=== PATIENT | female | born 1965 | race Caucasian/White ===

== ENCOUNTER 2020-10-20 08:57 | Outpatient (REF) | payer BC, SELFPAY ==
--- NOTE | 2020-10-20 09:04 | MM_ITS ---
EXAMINATION: MM SCREENING DIGITAL BREAST TOMOSYNTHESIS, BILATERAL CLINICAL INFORMATION: Screening. Asymptomatic. The lifetime risk of breast cancer based on the Tyrer-Cuzick Model is 9.8%. COMPARISON: Mammography: 10/15/2019 and studies dating back to 11/29/2011 TECHNIQUE: Digital breast tomosynthesis is performed in both the craniocaudal and mediolateral oblique views along with computer-aided detection (CAD). Synthesized 2D images are generated from the tomosynthesis. FINDINGS: There are scattered areas of fibroglandular density (ACR BI-RADS breast composition Category b). There is stable appearance of the right breast without new abnormal dominant mass or suspicious grouping of microcalcifications. Within the inferior retroareolar region of the left breast, there is an ill-defined density measuring approximately 6 mm in diameter questionably containing some calcification. Recommend spot magnification film and 90 degree mediolateral view and craniocaudal view. MM/MM tomosynthesis screening BI IMPRESSION: Left breast retroareolar lesion for which spot magnification views are recommended. ASSESSMENT: BI-RADS 0: Incomplete - Need additional imaging evaluation. RECOMMENDATION: 1. Additional views of the left breast. 2. Targeted ultrasound if warranted after review of the additional views. 3. Radiology department staff will contact the patient for additional imaging.
== END 2020-10-20 08:58 | disposition home or self-care (01) ==
LOC: HO.MAMMO 08:57
PROVIDERS: PCP Family Medicine; Visit Provider Family Medicine
DX: Z12.31 Encounter for screening mammogram for malignant neoplasm of breast (principal)
CPT/HCPCS: 77063; 77067

== ENCOUNTER 2020-11-14 09:00 | Outpatient (REF) | payer BC, SELFPAY ==
--- NOTE | 2020-11-14 | MM_ITS ---
EXAMINATION: MM DIAGNOSTIC DIGITAL BREAST TOMOSYNTHESIS, LEFT US DIAGNOSTIC ULTRASOUND BREAST, LEFT CLINICAL INFORMATION: Recall from screening for nodule periareolar 4:00 left breast with possible calcifications. Prior history bilateral reduction mammoplasty and mastopexy 4-5 years ago. COMPARISON: Mammography: 10/20/2020, 10/15/2019, 07/02/2018; targeted left breast ultrasound 09/26/2019 TECHNIQUE: Digital breast tomosynthesis is performed. 2D images are generated from the tomosynthesis. The following views are obtained: Magnification CC, magnification ML. In addition, spot ML, spot CC, spot MLO views are provided. Ultrasound left breast is targeted to the lateral periareolar region using grayscale imaging and color Doppler without and with harmonics. FINDINGS: There are scattered areas of fibroglandular density (ACR BI-RADS breast composition Category b). The additional views show no grouped calcifications. There is no suspicious mass or architectural abnormality. The nodule noted on recent breast imaging corresponds to the area of previously documented periareolar cyst. Ultrasound left breast demonstrates small simple cyst 4:00 position 4 cm from nipple measuring 0.8 x 0.6 x 0.4 cm. Prior measurements are 1.0 x 0.7 x 0.5 cm. There is no new cystic or solid mass or architectural abnormality. No focal duct ectasia. Results are discussed with the patient at time of visit. MM/MM tomosynthesis added views L IMPRESSION: 1. Mammography additional views demonstrate no suspicious calcifications. 2. Nodule periareolar left breast corresponds to previously documented simple cyst, slightly decreased in size since 2019. ASSESSMENT: BI-RADS 2: Benign RECOMMENDATION: Routine annual mammography screening. This patient's information was entered into a reminder system with a target due date for their next mammogram.
== END 2020-11-14 09:01 | disposition home or self-care (01) ==
LOC: HO.MAMMO 09:00
PROVIDERS: Visit Provider Family Medicine
DX: R92.8 Other abnormal and inconclusive findings on diagnostic imaging of breast (principal); Z91.89 Other specified personal risk factors, not elsewhere classified; N60.02 Solitary cyst of left breast
CPT/HCPCS: 76642; 77061; 77065

== ENCOUNTER 2022-01-18 10:30 | Outpatient (REF) | payer BC, SELFPAY ==
--- NOTE | ~2022-01-18 | MM_ITS ---
EXAMINATION: MM SCREENING DIGITAL BREAST TOMOSYNTHESIS, BILATERAL CLINICAL INFORMATION: Screening. Asymptomatic. Prior history reduction mammoplasty and mastopexy over 5 years ago. The lifetime risk of breast cancer based on the Tyrer-Cuzick Model is 8%. COMPARISON: Mammography: 11/14/2020, 10/20/2020, 10/15/2019 targeted left breast ultrasound 11/14/2020. TECHNIQUE: Digital breast tomosynthesis is performed in both the craniocaudal and mediolateral oblique views along with computer-aided detection (CAD). Synthesized 2D images are generated from the tomosynthesis. FINDINGS: There are scattered areas of fibroglandular density (ACR BI-RADS breast composition Category b). There are no significant masses, abnormal calcifications, or other abnormalities. Small cyst anterior 4:00 left breast is decreased and no longer clearly seen. No developing density. No significant changes. The axilla and skin contours are unremarkable. MM/MM tomosynthesis screening BI IMPRESSION: No mammographic evidence of malignancy. ASSESSMENT: BI-RADS 1: Negative RECOMMENDATION: Routine annual mammography screening. This patient's information was entered into a reminder system with a target due date for their next mammogram.
== END 2022-01-18 10:31 | disposition home or self-care (01) ==
LOC: HO.MAMMO 10:30
PROVIDERS: PCP Family Medicine; Visit Provider Family Medicine
DX: Z12.31 Encounter for screening mammogram for malignant neoplasm of breast (principal)
CPT/HCPCS: 77063; 77067

== ENCOUNTER 2023-05-20 08:36 | Outpatient (REF) | payer BC, SELFPAY ==
--- NOTE | ~2023-05-20 | MM_ITS ---
EXAMINATION: MM SCREENING DIGITAL BREAST TOMOSYNTHESIS, BILATERAL CLINICAL INFORMATION: Screening. Asymptomatic. The patient has a prior history of bilateral breast reduction. The lifetime risk of breast cancer based on the Tyrer-Cuzick Model is 8.7%. COMPARISON: Mammography: This study is compared with prior exams dating back to TECHNIQUE: Digital breast tomosynthesis is performed in both the craniocaudal and mediolateral oblique views along with computer-aided detection (CAD). Synthesized 2D images are generated from the tomosynthesis. FINDINGS: There are scattered areas of fibroglandular density (ACR BI-RADS breast composition Category b). There are no significant masses, abnormal calcifications, or other abnormalities. MM/MM tomosynthesis screening BI IMPRESSION: No mammographic evidence of malignancy. ASSESSMENT: BI-RADS BI-RADS 1 - Negative RECOMMENDATION: Routine annual mammography screening. 1 year F/U This examination should not preclude the clinical evaluation of a suspicious palpable abnormality. This patient's information was entered into a reminder system with a target due date for their next mammogram.
== END 2023-05-20 08:37 | disposition home or self-care (01) ==
LOC: HO.MAMMO 08:36
PROVIDERS: PCP Family Medicine; Visit Provider Family Medicine
DX: Z12.31 Encounter for screening mammogram for malignant neoplasm of breast (principal)
CPT/HCPCS: 77063; 77067

== ENCOUNTER → 2023-05-20 08:45 | Outpatient (BNV) | payer BC, SELFPAY | PROVIDERS: PCP Family Medicine; Visit Provider Radiology Diagnostic Radiology | DX: Z12.31 Encounter for screening mammogram for malignant neoplasm of breast (principal) | CPT/HCPCS: 77063; 77067 ==

== ENCOUNTER 2024-08-06 10:25 | Outpatient (REF) | payer BC, SELFPAY ==
--- NOTE | ~2024-08-06 | MM_ITS ---
EXAMINATION: MM SCREENING DIGITAL BREAST TOMOSYNTHESIS, BILATERAL CLINICAL INFORMATION: Screening. Asymptomatic. COMPARISON: Mammography: Comparison is made with available priors TECHNIQUE: Digital breast mammography with tomosynthesis is performed in both the craniocaudal and mediolateral oblique views along with computer-aided detection (CAD). FINDINGS: There are scattered areas of fibroglandular density (ACR BI-RADS breast composition Category b). There are no significant masses, abnormal calcifications, or other abnormalities. MM/MM tomosynthesis screening BI IMPRESSION: No mammographic evidence of malignancy. ASSESSMENT: BI-RADS BI-RADS 1 - Negative RECOMMENDATION: Routine annual mammography screening. 1 year F/U This examination should not preclude the clinical evaluation of a suspicious palpable abnormality. This patient's information was entered into a reminder system with a target due date for their next mammogram. Electronically signed by: Rosalba Jamison DO 08/18/2024 11:09 AM EDT
== END 2024-08-06 10:26 | disposition home or self-care (01) ==
LOC: HO.MAMMO 10:25
PROVIDERS: PCP Family Medicine; Visit Provider Family Medicine
DX: Z12.31 Encounter for screening mammogram for malignant neoplasm of breast (principal)
CPT/HCPCS: 77063; 77067

== ENCOUNTER → 2024-08-06 10:30 | Outpatient (BNV) | payer BC, SELFPAY | PROVIDERS: PCP Family Medicine; Visit Provider Internal Medicine | DX: Z12.31 Encounter for screening mammogram for malignant neoplasm of breast (principal) | CPT/HCPCS: 77063; 77067 ==

== ENCOUNTER 2025-08-12 10:21 | Outpatient (REF) | payer BC, SELFPAY ==
--- OUTSIDE RECORDS SUMMARY | 2025-06-07 04:30 | XMS_ITS ---
Author Organization [facility] [address] Address [address] [place] [address] Care Team Providers Care Stripper Color Name Role Phone CRYSTAL BROWN Unavailable [phone] Encounters Encounter Location Date Provider Diagnosis [facility] [address] [place] [address] 06/07/2025 CRYSTAL BROWN Plan Of Treatment Next Appt Details Provider Name:CRYSTAL BROWN, 10:00:00 AM, [address] , [place], [address], Provider Name:CRYSTAL BROWN, 03:00:00 PM, [address] , [place], [address], Progress Notes * Janeth BEALOB: [birth year] (60 yo F)Acc No.[id number]:06/07/2025 Patient: Seth Dorina VASQUEZ Provider: Kenneth BROWN PA-C :1965 A ge:59 Y S ex:Female Date:06/07/2025 Address:[address] [place] [address] [address] [place] [id number] Subjective: * Chief Complaints: * * Medical History: Objective: * Vitals: Assessment: Plan: * Treatment: * Images: Billing Information: * Visit Code: * Procedure Codes: * Electronic signature of ROXIE BROWN PA-C on 08/12/2025 at 10:24 AM EDT Sign off status: Pending * Provider: Kenneth BROWN PA-C Date: 0 06/07/2025 Generated for Toni hernandez/Herbie/Farzanaitting on: 0 08/12/2025 10:24 AM EDT
--- OUTSIDE RECORDS SUMMARY | 2025-08-09 04:45 | XMS_ITS ---
[facility] Address [address] [place] [address] Care Team Providers Care Business Info Consultant Name Role Phone CRYSTAL BROWN Unavailable [phone] Allergies Allergen (clinical drug ingredient) Drug/Non Drug Allergy documented on EMR Reaction Allergy Type Onset Date Status acetaminophen / oxycodone Percocet rash Drug Allergy Active REASON FOR VISIT Patient is here for Weight Management follow up. Seca done for review. Todays weigh in is 125.2LBS,Previous weigh in was 124.3LBS Medications Medication SIG (Take, Route, Fr equency, Duration) Notes Start Date End Date Status Contrave 8-90 MG 1 tablet in the morn ing Orally Once a day; Duration: 30 days 08/09/2025 Active metFORMIN HCl 500 MG 1 tablet with a tania l Orally Once a day; Duration: 30 days 08/09/2025 Active Estradiol 0.025 MG/24HR Transdermal; Dur ation: 28 Days Active tiZANidine HCl 4 MG 1 tablet at bedtime as needed Orally Once a day; Duration: 7 days 07/06/2025 Active LORazepam 0.5 MG Oral; Duration: 5 Days Active Melatonin Active Nortriptyline HCl 25 MG Oral; Duration: 30 Days Active Multivitamin - 1 tablet Orally Once a day Active Progesterone 100 MG TAKE 1 CAPSULE BY [facility] EVERY DAY FOR 90 DAYS Oral; Duration: 30 Days Active Vital Signs Blood pressure systolic 112 mm Hg 08/09/20 25 Blood pressure diastolic 62 mm Hg 025 Heart Rate 75 /min 08/09/2025 Height 64 in 08/09/2025 Weight 125.2 lbs 08/09/2025 BMI 21.49 kg/m2 08/09/2025 Oximetry 97 % 08/09/2025 Encounters Encounter Location Date Provider Diagnosis [facility] [address] [place] [address] 08/09/2025 CRYSTAL BROWN BMI 21.0-21.9, adult Z68.21 ; Dietary counseling Z71.3 ; Tingling R20.2 ; Numbness R20.0 ; Lumbar back pain M54.50 and Encounter for examination of blood pressure without abnormal findings Z01.30 Assessments Encounter Date Diagnosis (ICD Code) Assessment Notes Treatment Notes Treatment Clinical Notes Section Notes 08/09/2025 BMI 21.0-21.9, adult (ICD-10 - Z68.21) Dorina is a 59-year-old female with a past medical history of C-spine pain, back pain, neuropathy who presents to the office today for a weight consult. 07/06/2025: BMI 21.3, weight 124.3 MICC injection given to patient in office today. Along with purchasing cortisol sound effects manager for stress lowering. Patient advised that we may talk about Contrave at next appointment if she does not find any relief from the injection today. #C-spine pain: Of note patient did have a spinal fusion in 2021, at new patient visit we did fax referral over to [facility] for further imaging and a second opinion. She is currently following with [facility] spine and sports, however feels as though she has been brushed off in regards to pain management and different options. Will be prescribing tizanidine 4 mg tablets to utilize as needed along with refaxing the referral. 08/09/2025: BMI 21.49, weight 125.2 at this time will be starting Contrave 1 pill daily until patient is seen back in 4 weeks. Additionally patient may begin metformin 1 pill daily for overall insulin resistance and blood sugar control. Will not be having patient take more than 1 pill daily as her goal is maintenance not weight loss. #Muscle spasms: Continue utilizing tizanidine 4 mg tablets as needed. #MICC injection given today Patient is here for weight management followup. We focused on significance of healthy lifestyle changes. We talked about need to track steps, work on portion control, read food labels, get adequate sleep, give adequate rest of the body, meditate, frequent nutritious meals including vegetables and healthy choices of meat and elimination of refined carbohydrates. We also talked about mindfulness and mindful eating. Particular focus was on lifestyle changes and protein intake Total time spent was 30 minutes with greater than 50% spent on counseling and coordinating care All questions have been answered to patient's satisfaction. Patient verbalized understanding of diagnosis and treatments explained. Advised to call sooner prior to next visit it any questions/concerns arise. Case discussed with Suman CORDOVA who reviewed the assessment and plan. Chart, medications, labs, vital signs reviewed. Dictation was accomplished with the use of [employer] voice recognition software, which is prone to medical misidentifications and grammatical errors. This are unintentional and the practitioner does try to identify and correct these, but some could still be present. Please do not hesitate to contact practitioner for clarification. 08/09/2025 Dietary counseling (ICD-10 - Z71.3) Dorina is a 59-year-old female with a past medical history of C-spine pain, back pain, neuropathy who presents to the office today for a weight consult. 07/06/2025: BMI 21.3, weight 124.3 MICC injection given to patient in office today. Along with purchasing cortisol sound effects manager for stress lowering. Patient advised that we may talk about Contrave at next appointment if she does not find any relief from the injection today. #C-spine pain: Of note patient did have a spinal fusion in 2021, at new patient visit we did fax referral over to [facility] for further imaging and a second opinion. She is currently following with [facility] spine and sports, however feels as though she has been brushed off in regards to pain management and different options. Will be prescribing tizanidine 4 mg tablets to utilize as needed along with refaxing the referral. 08/09/2025: BMI 21.49, weight 125.2 at this time will be starting Contrave 1 pill daily until patient is seen back in 4 weeks. Additionally patient may begin metformin 1 pill daily for overall insulin resistance and blood sugar control. Will not be having patient take more than 1 pill daily as her goal is maintenance not weight loss. #Muscle spasms: Continue utilizing tizanidine 4 mg tablets as needed. #MICC injection given today Patient is here for weight management followup. We focused on significance of healthy lifestyle changes. We talked about need to track steps, work on portion control, read food labels, get adequate sleep, give adequate rest of the body, meditate, frequent nutritious meals including vegetables and healthy choices of meat and elimination of refined carbohydrates. We also talked about mindfulness and mindful eating. Particular focus was on lifestyle changes and protein intake Total time spent was 30 minutes with greater than 50% spent on counseling and coordinating care All questions have been answered to patient's satisfaction. Patient verbalized understanding of diagnosis and treatments explained. Advised to call sooner prior to next visit it any questions/concerns arise. Case discussed with Suman CORDOVA who reviewed the assessment and plan. Chart, medications, labs, vital signs reviewed. Dictation was accomplished with the use of [employer] voice recognition software, which is prone to medical misidentifications and grammatical errors. This are unintentional and the practitioner does try to identify and correct these, but some could still be present. Please do not hesitate to contact practitioner for clarification. 08/09/2025 Tingling (ICD-10 - R20.2) Dorina is a 59-year-old female with a past medical history of C-spine pain, back pain, neuropathy who presents to the office today for a weight consult. 07/06/2025: BMI 21.3, weight 124.3 MICC injection given to patient in office today. Along with purchasing cortisol sound effects manager for stress lowering. Patient advised that we may talk about Contrave at next appointment if she does not find any relief from the injection today. #C-spine pain: Of note patient did have a spinal fusion in 2021, at new patient visit we did fax referral over to [facility] for further imaging and a second opinion. She is currently following with [facility] spine and sports, however feels as though she has been brushed off in regards to pain management and different options. Will be prescribing tizanidine 4 mg tablets to utilize as needed along with refaxing the referral. 08/09/2025: BMI 21.49, weight 125.2 at this time will be starting Contrave 1 pill daily until patient is seen back in 4 weeks. Additionally patient may begin metformin 1 pill daily for overall insulin resistance and blood sugar control. Will not be having patient take more than 1 pill daily as her goal is maintenance not weight loss. #Muscle spasms: Continue utilizing tizanidine 4 mg tablets as needed. #MICC injection given today Patient is here for weight management followup. We focused on significance of healthy lifestyle changes. We talked about need to track steps, work on portion control, read food labels, get adequate sleep, give adequate rest of the body, meditate, frequent nutritious meals including vegetables and healthy choices of meat and elimination of refined carbohydrates. We also talked about mindfulness and mindful eating. Particular focus was on lifestyle changes and protein intake Total time spent was 30 minutes with greater than 50% spent on counseling and coordinating care All questions have been answered to patient's satisfaction. Patient verbalized understanding of diagnosis and treatments explained. Advised to call sooner prior to next visit it any questions/concerns arise. Case discussed with Suman CORDOVA who reviewed the assessment and plan. Chart, medications, labs, vital signs reviewed. Dictation was accomplished with the use of [employer] voice recognition software, which is prone to medical misidentifications and grammatical errors. This are unintentional and the practitioner does try to identify and correct these, but some could still be present. Please do not hesitate to contact practitioner for clarification. 08/09/2025 Numbness (ICD-10 - R20.0) Dorina is a 59-year-old female with a past medical history of C-spine pain, back pain, neuropathy who presents to the office today for a weight consult. 07/06/2025: BMI 21.3, weight 124.3 MICC injection given to patient in office today. Along with purchasing cortisol sound effects manager for stress lowering. Patient advised that we may talk about Contrave at next appointment if she does not find any relief from the injection today. #C-spine pain: Of note patient did have a spinal fusion in 2021, at new patient visit we did fax referral over to [facility] for further imaging and a second opinion. She is currently following with [facility] spine and sports, however feels as though she has been brushed off in regards to pain management and different options. Will be prescribing tizanidine 4 mg tablets to utilize as needed along with refaxing the referral. 08/09/2025: BMI 21.49, weight 125.2 at this time will be starting Contrave 1 pill daily until patient is seen back in 4 weeks. Additionally patient may begin metformin 1 pill daily for overall insulin resistance and blood sugar control. Will not be having patient take more than 1 pill daily as her goal is maintenance not weight loss. #Muscle spasms: Continue utilizing tizanidine 4 mg tablets as needed. #MICC injection given today Patient is here for weight management followup. We focused on significance of healthy lifestyle changes. We talked about need to track steps, work on portion control, read food labels, get adequate sleep, give adequate rest of the body, meditate, frequent nutritious meals including vegetables and healthy choices of meat and elimination of refined carbohydrates. We also talked about mindfulness and mindful eating. Particular focus was on lifestyle changes and protein intake Total time spent was 30 minutes with greater than 50% spent on counseling and coordinating care All questions have been answered to patient's satisfaction. Patient verbalized understanding of diagnosis and treatments explained. Advised to call sooner prior to next visit it any questions/concerns arise. Case discussed with Suman CORDOVA who reviewed the assessment and plan. Chart, medications, labs, vital signs reviewed. Dictation was accomplished with the use of [employer] voice recognition software, which is prone to medical misidentifications and grammatical errors. This are unintentional and the practitioner does try to identify and correct these, but some could still be present. Please do not hesitate to contact practitioner for clarification. 08/09/2025 Lumbar back pain (ICD-10 - M54.50) Dorina is a 59-year-old female with a past medical history of C-spine pain, back pain, neuropathy who presents to the office today for a weight consult. 07/06/2025: BMI 21.3, weight 124.3 MICC injection given to patient in office today. Along with purchasing cortisol sound effects manager for stress lowering. Patient advised that we may talk about Contrave at next appointment if she does not find any relief from the injection today. #C-spine pain: Of note patient did have a spinal fusion in 2021, at new patient visit we did fax referral over to [facility] for further imaging and a second opinion. She is currently following with [facility] spine and sports, however feels as though she has been brushed off in regards to pain management and different options. Will be prescribing tizanidine 4 mg tablets to utilize as needed along with refaxing the referral. 08/09/2025: BMI 21.49, weight 125.2 at this time will be starting Contrave 1 pill daily until patient is seen back in 4 weeks. Additionally patient may begin metformin 1 pill daily for overall insulin resistance and blood sugar control. Will not be having patient take more than 1 pill daily as her goal is maintenance not weight loss. #Muscle spasms: Continue utilizing tizanidine 4 mg tablets as needed. #MICC injection given today Patient is here for weight management followup. We focused on significance of healthy lifestyle changes. We talked about need to track steps, work on portion control, read food labels, get adequate sleep, give adequate rest of the body, meditate, frequent nutritious meals including vegetables and healthy choices of meat and elimination of refined carbohydrates. We also talked about mindfulness and mindful eating. Particular focus was on lifestyle changes and protein intake Total time spent was 30 minutes with greater than 50% spent on counseling and coordinating care All questions have been answered to patient's satisfaction. Patient verbalized understanding of diagnosis and treatments explained. Advised to call sooner prior to next visit it any questions/concerns arise. Case discussed with Suman CORDOVA who reviewed the assessment and plan. Chart, medications, labs, vital signs reviewed. Dictation was accomplished with the use of [employer] voice recognition software, which is prone to medical misidentifications and grammatical errors. This are unintentional and the practitioner does try to identify and correct these, but some could still be present. Please do not hesitate to contact practitioner for clarification. 08/09/2025 Encounter for examination of blood pressure without abnormal findings (ICD-10 - Z01.30) Dorina is a 59-year-old female with a past medical history of C-spine pain, back pain, neuropathy who presents to the office today for a weight consult. 07/06/2025: BMI 21.3, weight 124.3 MICC injection given to patient in office today. Along with purchasing cortisol sound effects manager for stress lowering. Patient advised that we may talk about Contrave at next appointment if she does not find any relief from the injection today. #C-spine pain: Of note patient did have a spinal fusion in 2021, at new patient visit we did fax referral over to [facility] for further imaging and a second opinion. She is currently following with [facility] spine and sports, however feels as though she has been brushed off in regards to pain management and different options. Will be prescribing tizanidine 4 mg tablets to utilize as needed along with refaxing the referral. 08/09/2025: BMI 21.49, weight 125.2 at this time will be starting Contrave 1 pill daily until patient is seen back in 4 weeks. Additionally patient may begin metformin 1 pill daily for overall insulin resistance and blood sugar control. Will not be having patient take more than 1 pill daily as her goal is maintenance not weight loss. #Muscle spasms: Continue utilizing tizanidine 4 mg tablets as needed. #MICC injection given today Patient is here for weight management followup. We focused on significance of healthy lifestyle changes. We talked about need to track steps, work on portion control, read food labels, get adequate sleep, give adequate rest of the body, meditate, frequent nutritious meals including vegetables and healthy choices of meat and elimination of refined carbohydrates. We also talked about mindfulness and mindful eating. Particular focus was on lifestyle changes and protein intake Total time spent was 30 minutes with greater than 50% spent on counseling and coordinating care All questions have been answered to patient's satisfaction. Patient verbalized understanding of diagnosis and treatments explained. Advised to call sooner prior to next visit it any questions/concerns arise. Case discussed with Suman CORDOVA who reviewed the assessment and plan. Chart, medications, labs, vital signs reviewed. Dictation was accomplished with the use of [employer] voice recognition software, which is prone to medical misidentifications and grammatical errors. This are unintentional and the practitioner does try to identify and correct these, but some could still be present. Please do not hesitate to contact practitioner for clarification. Plan Of Treatment Medication Medication Name Sig Start Date Stop Date Notes Contrave 8-90 MG 1 tablet in the morn ing Orally Once a day; Duration: 30 days 08/09/2025 metFORMIN HCl 500 MG 1 tablet with a tania l Orally Once a day; Duration: 30 days 08/09/2025 tiZANidine HCl 4 MG 1 tablet at bedtime as needed Orally Once a day; Duration: 7 days 07/06/2025 Pending Test Test Name Order Date [facility] Hemoglobin A1C 08/09/2025 Next Appt Details Provider Name:CRYSTAL BROWN, 10:00:00 AM, [address], [place], [address], Provider Name:CRYSTAL BROWN, 03:00:00 PM, [address] , [place], [address], Medications Administered Medication Instructions Date of Administration Dosage Notes [facility] B12 INJECTION 08/09/2025 1 mL Progress Notes * Janeth BEALOB: [birth year] (60 yo F)Acc No.[id number]:08/09/2025 Patient: Dorina STANTON Provider: Kenneth BROWN PA-C :1965 A ge:60 Y S ex:Female Date:08/09/2025 Address:[address] [place] [address] [address], [place] [id number] Subjective: * Chief Complaints: * 1 . Patient is here for Weight Management follow up. Seca done for review. Todays weigh in is 125.2LBS, Previous weigh in was 124.3LBS. * HPI: C onstitutional: Dorina is a 60-year-old female with a past medical history of C-spine discomfort, back pain who presents to the office today for a weight management follow-up. Patient's current weight today is 125.2, last weight was 124.3. Patient states that she was previously being prescribed metformin, bupropion and naltrexone through [facility] and is interested in restarting these medications. I feel as though would be appropriate to dose Contrave once daily for 1 month until I see patient back for maintenance dosing. Additionally metformin 500 mg once daily would be appropriate for maintenance as well. Patient admits that she is still following with her massage therapist, chiropractor and switchboard mechanic for her back pain, hip pain and leg pain.. States that tizanidine was helpful with her muscle spasms and cortisol sound effects manager helped her with her sleep. * ROS: C onstitutional: Patient denies any excessive fatigue with exercise, no weight loss, no fever and no night sweats Eyes: No eye discharge, no itching, no redness. Advised the significance of regular eye exams to screen for glaucoma and other eye problems Ear nose throat: No sore throat, postnasal drip, runny nose, Sneezing Cardiovascular: No chest pain, no shortness of breath, no dyspnea on exertion, no PND, no orthopnea, no irregular pulse Respiratory: No chronic cough, no hemoptysis, no sputum, no wheezing GI, no diarrhea, no constipation no blood in the stools, no pain associated with eating, no indigestion Genitourinary: No painful urination no hesitancy no blood in the urine Musculoskeletal, no limitations to walking and running, no joint deformity, no joint stiffness, +chronic back pain/neck pain, no noise with joint movement Integumentary, no new skin rash. No new changes in skin moles Neurological: No history of seizures, memory loss, No language dysfunction, No inability to concentrate, no localized weakness, no sensation loss, no confusion Psychiatric: No depression, no suicidal thoughts, no anxiety Endocrine: No polyuria no polyphagia or polydipsia, no heat intolerance no cold intolerance Hematological: No easy bruising or Lymph node swelling. * Medical History: M edical History Verified. * Surgical History: b reast reduction , section , Ulnar shortening , Spinal Fusion 2021. * Hospitalization/Major Diagno stic Procedure: D enies Past Hospitalization. * Family History: F ather: alive 81 yrs. M other: alive 78 yrs. S iblings: alive. C hildren: alive.? FHX of cancer, Diabetes adn HTN Father- Prostate cancer, HTN, and HLD Mother- NONE Three siblings- two brothers(one with diabetes), one sister Two children 26 and 29. 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 * Medications: T aking Melatonin , Taking Multivitamin - Tablet 1 tablet Orally Once a day , Taking Progesterone 100 MG Capsule TAKE 1 CAPSULE BY MOUTH EVERY DAY FOR 90 DAYS Oral , Taking Nortriptyline HCl 25 MG Capsule Oral , Taking Estradiol 0.025 MG/24HR Patch Twice Weekly Transdermal , Taking LORazepam 0.5 MG Tablet Oral , Taking tiZANidine HCl 4 MG Tablet 1 tablet at bedtime as needed Orally Once a day , Medication List reviewed and reconciled with the patient * Allergies: P ercocet: rash - Allergy. Objective: * Vitals: H R:75/min, BP:112/62mm Hg, Wt:125.2lbs, BMI:21.49Index, Ht: 64 in, Oxygen sat %:97%. * Physical Examination: G eneral: Patient is well appearing, in no acute distress, speaking in full sentences without visible respiratory distress. Well groomed, well developed. Alert, interactive. Skin: Warm, dry without new lesions HEENT: Normocephalic/atraumatic. Cardiac: Regular rate and rhythm without murmurs, rubs, or gallops. 2+ radial pulses bilaterally.? Lungs: Equal chest rise and fall bilaterally. Neuro: Steady gait with non-assisted ambulation observed. Psych: Stable mood and affect. Assessment: * Assessment: 1. D ietary counseling - Z71.3 (Primary) [address] 21.0-21.9, adult - Z68.21? 3. T ingling - R20.2 4 . N umbness - R20.0 ?5. L umbar back pain - M54.50 6 . E ncounter for examination of blood pressure without abnormal findings - Z01.30 Dorina is a 59-year-old fema le with a past medical history of C-spine pain, back pain, neuropathy who presents to the office today for a weight consult. 07/06/2025: BMI 21.3, weight 124.3 MICC injection given to patient in office today. Along with purchasing cortisol sound effects manager for stress lowering. Patient advised that we may talk about Contrave at next appointment if she does not find any relief from the injection today. #C-spine pain: Of note patient did have a spinal fusion in 2021, at new patient visit we did fax referral over to [facility] for further imaging and a second opinion. She is currently following with [facility] spine and sports, however feels as though she has been brushed off in regards to pain management and different options. Will be prescribing tizanidine 4 mg tablets to utilize as needed along with refaxing the referral. 08/09/2025: BMI 21.49, weight 125.2 at this time will be starting Contrave 1 pill daily until patient is seen back in 4 weeks. Additionally patient may begin metformin 1 pill daily for overall insulin resistance and blood sugar control. Will not be having patient take more than 1 pill daily as her goal is maintenance not weight loss. #Muscle spasms: Continue utilizing tizanidine 4 mg tablets as needed. #MICC injection given today Patient is here for weight management followup. We focused on significance of healthy lifestyle changes. We talked about need to track steps, work on portion control, read food labels, get adequate sleep, give adequate rest of the body, meditate, frequent nutritious meals including vegetables and healthy choices of meat and elimination of refined carbohydrates. We also talked about mindfulness and mindful eating. Particular focus was on lifestyle changes and protein intake Total time spent was 30 minutes with greater than 50% spent on counseling and coordinating care All questions have been answered to patient's satisfaction. Patient verbalized understanding of diagnosis and treatments explained. Advised to call sooner prior to next visit it any questions/concerns arise. Case discussed with Suman CORDOVA who reviewed the assessment and plan. Chart, medications, labs, vital signs reviewed. Dictation was accomplished with the use of [employer] voice recognition software, which is prone to medical misidentifications and grammatical errors. This are unintentional and the practitioner does try to identify and correct these, but some could still be present. Please do not hesitate to contact practitioner for clarification. Plan: * Treatment: * Therapeutic Injections: MICC B12 INJECTION : 1 mL (Route: Intramuscular) given by VALERIE VISANETTE on left arm intramuscular * Labs: * L ab: PPC Hemoglobin A1C 5 .1% * Procedure Codes: 3 074F SYST BP LT 130 MM HG, 3078F DIAST BP < 80 MM HG, 99460 GLYCATED HEMOGLOBIN TEST, Modifiers: QW * Images: Billing Information: * Visit Code: 19465 Office Visit, Est Pt., Level 4. Modifiers: SA * Procedure Codes: 3074F SYST BP LT 130 MM HG. 3078F DIAST BP < 80 MM HG. 85870 GLYCATED HEMOGLOBIN TEST. Modifiers: QW * Sign off status: Completed true * Provider: Kenneth BROWN PA-C Date: 08/09/2025 Generated for Toni hernandez/Herbie/Farzanaitting on: 08/12/2025 10:24 AM EDT History and Physical Notes * Physical Examination Category Sub-Category Detail Notes Section Note s General: Patient is well appearing, in no acute distress, speaking in full sentences without visible respiratory distress. Well groomed, well developed. Alert, interactive. Skin: Warm, dry without new lesions HEENT: Normocephalic/atraumatic. Cardiac: Regular rate and rhythm without murmurs, rubs, or gallops. 2+ radial pulses bilaterally. Lungs: Equal chest rise and fall bilaterally. Neuro: Steady gait with non-assisted ambulation observed. Psych: Stable mood and affect.
--- NOTE | ~2025-08-12 | MM_ITS ---
EXAMINATION: MM SCREENING DIGITAL BREAST TOMOSYNTHESIS, BILATERAL CLINICAL INFORMATION: Screening. Asymptomatic. COMPARISON: Mammography: Comparison is made with available priors TECHNIQUE: Digital breast mammography with tomosynthesis is performed in both the craniocaudal and mediolateral oblique views along with computer-aided detection (CAD). FINDINGS: There are scattered areas of fibroglandular density. There are no significant masses, abnormal calcifications, or other abnormalities. MM/MM tomosynthesis screening BI IMPRESSION: No mammographic evidence of malignancy. ASSESSMENT: BI-RADS Category 1: Negative RECOMMENDATION: Routine annual mammography screening. 1 year F/U This examination should not preclude the clinical evaluation of a suspicious palpable abnormality. This patient's information was entered into a reminder system with a target due date for their next mammogram. Electronically signed by: Rosalba Jamison DO 08/15/2025 09:40 AM EDMina
--- OUTSIDE RECORDS SUMMARY | 2025-08-12 10:24 | XMS_ITS | Clinical Summary ---
Author Organization [facility] Address [address] [place] [address] Care Team Providers Care Social Sciences Research Scientist Name Role Phone Unknown, Primary Care Provider Unavailabl e Social History Tobacco Use Types Packs/Day Years Used Date Smoking Tobacco: Never Assessed Sex and Gender Information Value Date Recorded Sex Assigned at Not on file Gender Identity Not on file Sexual Orientation Not on file Job Start Date Occupation Industry Not on file Not on file Not on file Plan of Treatment Health Maintenance Due Date Last Done Comments Hepatitis B Vaccines (1 of 3 - 3-dose series) 1967 Hepatitis C Screening 1967 COVID-19 Vaccine (#1) 01/29/1968 Depression Screening 1979 Preventative Health Evaluation 1985 DTap / Tdap / Td (1 - Tdap) 1986 Cervical Cancer Screening (P ap Smear) 1988 Colon Cancer Screening (Colonoscopy) 2012 Breast Cancer Screening (Mammogram) 2017 Shingrix-Zoster Vaccine (1 of 2) 2017 Influenza Vaccine (#1) 2025 Pneumococcal Vaccine Aged Out No long er eligible based on patient's age to complete this topic RSV Ped < 20 months Aged Out No longe r eligible based on patient's age to complete this topic Care Teams Social Sciences Research Scientist Relationship Specialty Start Date End Date Unknown, PCP - General 01/30/23
--- OUTSIDE RECORDS SUMMARY | 2025-08-12 10:24 | XMS_ITS | Clinical Summary ---
Author Organization [facility] Address [address] [place] [address] Care Team Providers Care Recording Studio Intern Name Role Phone Rafiq Aguila MD Primary Care Provider [phone] Allergies No known active allergies Social History Tobacco Use Types Packs/Day Years Used Date Smoking Tobacco: Never Assessed Comments Unknown Sex and Gender Information Value Date Recorded Sex Assigned at Not on file Legal Sex Female 3:27 PM EDT Gender Identity Not on file Sexual Orientation Not on file Last Filed Vital Signs Vital Sign Reading Time Taken Comments Blood Pressure 109/76 09/07/2020 4:37 PM EDT Pulse 75 09/07/2020 4:37 PM EDT Temperature 36.1 C (96.9 F) 09/07/2020 4:37 PM EDT Respiratory Rate - - Oxygen Saturation 98% 09/07/2020 4:37 PM EDT Inhaled Oxygen Concentration - - Weight - - Height - - Body Mass Index - - Plan of Treatment Health Maintenance Due Date Last Done Comments Hepatitis C Virus Screening 1967 HIV Screening 1980 DTaP/Tdap/Td Vaccines (1 - Tdap) 1986 Hepatitis B Vaccines (1 of 3 - 19+ 3-dose series) 07/17 Pap Smear (Ages 21-65) 1988 Mammogram 2007 Colonoscopy 2012 Pneumococcal Vaccines 50+ (1 of 1 - PCV) 2017 Zoster (Shingles) Vaccine (1 of 2) 2017 Influenza Vaccine 06/16/2025 COVID-19 Vaccine (1 - 2023- season) 2025 Insurance [facility] PPO Care Teams Recording Studio Intern Relationship Specialty Start Date End Date Rafiq Aguila MD [address] [place] [address] PCP - General Psychiatry, General 09/07/20
--- OUTSIDE RECORDS SUMMARY | 2025-08-12 10:24 | XMS_ITS | Clinical Summary ---
Author Organization [facility] Address [address] [place] [id number] Care Team Providers Care General Practice Name Role Phone Rafiq Aguila MD Primary Care Provider [phone] Allergies Active Allergy Reactions Criticality Noted Date Comments Oxycodone-Acetaminophen 11/19/2021 Other reaction(s): itchy Medications LORazepam (ATIVAN) 0.5 mg tablet lorazepam 0.5 mg tablet Active Family History Medical History Relation Comments Basal cell carcinoma Father Relation Status Comments Father Social History Tobacco Use Types Packs/Day Years Used Date Smoking Tobacco: Never Smokeless Tobacco: Never Comments Unknown Sex and Gender Information Value Date Recorded Sex Assigned at Female 11/19/2021 2:20 PM EST Legal Sex Female 9:52 AM EDT Gender Identity Female 11/19/2021 2:20 PM EST Sexual Orientation Not on file Last Filed Vital Signs Vital Sign Reading Time Taken Comments Blood Pressure 144/95 11/19/2021 3:58 PM EST Pulse 69 11/19/2021 3:58 PM EST Temperature 36.6 C (97.9 F) 11/19/2021 3:58 PM EST Respiratory Rate 18 11/19/2021 3:58 PM EST Oxygen Saturation 97% 11/19/2021 3:58 PM EST Inhaled Oxygen Concentration - - Weight 61.2 kg (135 lb) 11/19/2021 3:58 PM EST Height 167.6 cm (5' 6 ) 11/19/2021 3:58 PM EST Body Mass Index 21.79 11/19/2021 3:58 PM EST Plan of Treatment Health Maintenance Due Date Last Done Comments Breast Cancer Screening 1967 CT Colonography 1967 Colonoscopy 1967 Colorectal Cancer Screening 1967 FIT-DNA (Cologuard) 1967 FIT 1967 FOBT 1967 Flex Sigmoidoscopy - 5y 1967 HIV Screening 1967 DTaP,Tdap,and Td Vaccines (1 - Tdap) 1985 Hepatitis B Vaccines (1 of 3 - 19+ 3-dose series) 1986 Pap Smear 1988 Cervical Cancer Screening 1997 HPV/Cotest 1997 Pneumococcal Vaccine, 50+ Years (1 of 1 - PCV) 2017 Zoster Vaccines (1 of 2) 2017 COVID-19 Vaccine (1 - 2023-2 5 season) 2025 Influenza Vaccine (#1) 2025 1, 10/10/2019 HPV Vaccines Aged Out No longer eligi ble based on patient's age to complete this topic Hepatitis A Vaccines Aged Out No long er eligible based on patient's age to complete this topic MMR Vaccines Aged Out No longer eligi ble based on patient's age to complete this topic Meningococcal Vaccine Aged Out No prashant caned eligible based on patient's age to complete this topic Insurance Care Teams General Practice Relationship Specialty Start Date End Date Rafiq Aguila MD [facility] [address] [place] [id number] PCP - General Family Medicine 06/19/21
--- OUTSIDE RECORDS SUMMARY | 2025-08-12 10:24 | XMS_ITS ---
Author Name [facility] Organization Unknown Results Test Name/Text Value Interpretation Date Range Source TROPONIN 0.0 mg/dL Normal 09/18/2024 0 - 0.49 [facility] GFRE 60.0 Normal 09/18/2024 60 - [facility] CO2 26.0 mmol/L Normal 09/18/2024 20 - 31 [facility] GLUCOSE 87.0 mg/dL Normal 09/18/2024 74 - 100 [facility] SODIUM 135.0 mmol/L Below low normal 09/18/2024 136 - 145 [facility] GLOBULIN 2.7 g/dL Normal 09/18/2024 2.4 - 4.2 [facility] CREATININE 1.01 mg/dL Normal 09/18/2024 0.55 - 1.02 [facility] POTASSIUM SERUM 3.7 mmol/l Normal 09/18/2024 3.5 - 5.1 [facility] ALKALINE PHOSPHATASE 61.0 U/L Normal 09/18/2024 50 - 136 [facility] BUN 11.0 mg/dL Normal 09/18/2024 7 - 18 [facility] BILIRUBIN,TOTAL 1.3 mg/dL Above high normal 09/18/2024 0.2 - 1 [facility] A/G RATIO 1.7 g/dL Normal 09/18/2024 [facility] AST (SGOT) 17.0 U/L Normal 09/18/2024 15 - 37 [facility] BUN/CREAT.RATIO 10.9 Normal 09/18/2024 [facility] PROTEIN, TOTAL 7.4 g/dL Normal 09/18/2024 5.7 - 8.2 [facility] ALBUMIN 4.7 g/dL Normal 09/18/2024 3.4 - 5 [facility] CHLORIDE 100.0 mmol/L Normal 09/18/2024 98 - 107 [facility] ALT (SGPT) 14.0 U/L Normal 09/18/2024 12 - 78 [facility] PATIENT FASTING? UNKNOWN Normal 09/18/2024 [facility] RBC 0.0 /HPF Normal 09/18/2024 0 - 0 [facility] WBC 0.0 /HPF Normal 09/18/2024 0 - 0 [facility] GLUCOSE NEG Normal 09/18/2024 - [facility] NITRITE NEG Normal 09/18/2024 - [facility] LEUK. ESTERASE NEG Normal 09/18/2024 - [facility] KETONES NEGATIVE Normal 09/18/2024 - [facility] UROBILINOGEN 0.2 MG/DL Normal 09/18/2024 - [facility] COLOR YELLOW Normal 09/18/2024 - [facility] BILIRUBIN NEGATIVE Normal 09/18/2024 - [facility] SPECIFIC GRAVITY <=1.005 Critically abnormal 09/18/2024 1. 005 - 1.03 [facility] PH 6.0 Normal 09/18/2024 5 - 8 [facility] APPEARANCE CLEAR Normal 09/18/2024 - [facility] BLOOD NEG Normal 09/18/2024 - [facility] PROTEIN NEG Normal 09/18/2024 - [facility] PLATELET COUNT 427.0 K/uL Normal 09/18/2024 150 - 480 [facility] ABSOLUTE MONOS 0.8 K/uL Normal 09/18/2024 0.2 - 1.5 [facility] LYMPHS 38.0 % Normal 09/18/2024 16 - 50 [facility] ABSOLUTE BASO 0.1 K/uL Normal 09/18/2024 0 - 0.2 [facility] IMMATURE GRANULOCYTES 0.0 % Normal 09/18/2024 0 - 0.45 [facility] MONOCYTES 11.0 % Normal 09/18/2024 0 - 12 [facility] MCH 32.0 PG Normal 09/18/2024 27 - 34 [facility] ABSOLUTE EOS 0.3 K/uL Normal 09/18/2024 0 - 0.7 [facility] HCT 35.2 % Below low normal 09/18/2024 36 - 46 [facility] ABSOLUTE LYMPHS 2.6 K/uL Normal 09/18/2024 1.5 - 4.9 [facility] ABSOLUTE IMMATURE GRANULOCYTES 0.0 K/uL Normal 09/18/2024 0 - 0.3 [facility] WBC 6.8 K/uL Normal 09/18/2024 3.7 - 10.3 [facility] ABSOLUTE NUCLEATED RBC 0.0 K/uL Normal 09/18/2024 0 - 0.012 [facility] MPV 9.0 fL Normal 09/18/2024 8 - 12 [facility] ABSOLUTE GRANULOCYTES 3.1 K/uL Normal 09/18/2024 2.2 - 7.3 [facility] RDW 12.5 % Normal 09/18/2024 11.1 - 13.3 [facility] RBC 3.94 M/uL Below low normal 09/18/2024 4 - 5.4 [facility] EOSINOPHILS 4.0 % Normal 09/18/2024 0 - 6 [facility] HGB 12.7 g/dL Normal 09/18/2024 12.1 - 15.7 [facility] GRANULOCYTES 46.0 % Normal 09/18/2024 23 - 78 [facility] MCHC 36.1 g/dL Above high normal 09/18/2024 31 - 36 [facility] MCV 89.0 fL Normal 09/18/2024 83 - 102 [facility] NUCLEATED RBC 0.0 % Normal 09/18/2024 0 - 0.2 [facility] BASOPHILS 1.0 % Normal 09/18/2024 0 - 2 [facility] History of Medication Use Medication Directions Dispensed Refills Start Date End Date Stat Tylenol Extra Strength 500 mg tablet Take 2 tablets 3 times a day by oral route. 02/05/2023 active chlorhexidine gluconate 0.12 % mouthwash RINSE MOUTH WITH 15ML (1 CAPFUL) FOR 30 SECONDS IN MORNING AND EVENING AFTER BRUSHING, THEN SPIT 3 completed cyclobenzaprine 5 mg tablet TAKE ONE TABLET BY MOUTH THREE TIMES A DAY FOR 14 DAYS 3 completed oxycodone 5 mg tablet TAKE 1 TABLET BY MOUTH EVERY 6 HOURS NEEDED FOR PAIN 2 completed ibuprofen 600 mg tablet TAKE 1 TABLET BY MOUTH EVERY 6 HOURS active Lexapro active Problems Problem Status Onset Date Problem Type Date of Resoluti on Source Closed fracture dislocation of tarsometatarsal joint active 2023-02-04 ProblemAct ENS_AO NECT Encounters Encounter Type Encounter Reason Primary Diagnosis Location Date Emergency FALL YESTERDAY HEADACHE F[facility] YESTER[facility] 09/18/2024 Ambulatory LUMBAR/BP LUMBAR/BP [facility] 08/02/2024 Ambulatory [facility] 06/29/2023 Ambulatory [facility] 06/29/2023 Ambulatory [facility] 03/07/2023 Ambulatory ED REF L FOOT PAIN 02/02/23 ED REF L FOOT PAIN 02/02/23 [facility] 02/02/2023 Emergency LEFT FOOT INJURY LEFT FOOT INJURY [facility] 01/25/2023 Ambulatory Chronic sinusiti s, unspecified [facility] 11/19/2021 Care Team Organization Name Specialty Phone Email Start Date End [facility] Legal Analyst ([employer]) DAHAN Primary Care 07/03/2025 [facility] Primary Care 09/19/2024 5 [facility] Rafiq Redd Primary Care 09/18/2024 [facility] No provided Primary Care 08/02/2024 [facility] provided,No Primary Care 07/25/2024 10/31/2024 [facility]. No provided Primary Care 02/02/2023 023 [facility] directory Not Primary Care 01/26/2023 5 [facility] provided No Primary Care 01/26/2023 07/04/2024 [facility] Not directory Primary Care 01/25/2023 3 [facility] RAFIQ REDD Primary Care 11/19/1907/04/2024 [facility] RAFIQ REDD Primary Care 11/19/1911/19/2021
--- OUTSIDE RECORDS SUMMARY | 2025-08-12 10:24 | XMS_ITS | Patient Health Record ---
Author Organization [facility] [address] Address [address] [place] [address] Care Team Providers Care Clinical Informatics Physician Name Role Phone CRYSTAL BROWN Unavailable [phone] Allergies Allergen (clinical drug ingredient) Drug/Non Drug Allergy documented on EMR Reaction Allergy Type Onset Date Status acetaminophen / oxycodone Percocet rash Drug Allergy Active Reason For Referral Reason Evaluate & Treat Diagnosis 1 Lumbar back pain (M5 4.50) Referral Organization [facility] Referring Provider First Name CRYSTAL Referring Provider Last Name STEPHANIE Referring Provider Speciality Internal M edicine Referred Provider Specialty Physical The rapist General Notes Becca Aguirre 2024 03:46:02 PM > [facility] spine referral, p. [phone], f. Clinical Notes Becca Aguirre 2024 01:30:05 PM > have lvm for good fax #, Geronimo Shilpa 07/06/2025 09:05:52 AM > faxed to [facility] Referral Priority Routine Medications Medication SIG (Take, Route, Fr equency, Duration) Notes Start Date End Date Status Melatonin Active Contrave 8-90 MG 1 tablet in the morn ing Orally Once a day; Duration: 30 days 08/09/2025 Active Nortriptyline HCl 25 MG Oral; Duration: 30 Days Active metFORMIN HCl 500 MG 1 tablet with a tania l Orally Once a day; Duration: 30 days 08/09/2025 Active Estradiol 0.025 MG/24HR Transdermal; Dur ation: 28 Days Active Multivitamin - 1 tablet Orally Once a day Active Progesterone 100 MG TAKE 1 CAPSULE BY [facility] EVERY DAY FOR 90 DAYS Oral; Duration: 30 Days Active tiZANidine HCl 4 MG 1 tablet at bedtime as needed Orally Once a day; Duration: 7 days 07/06/2025 Active LORazepam 0.5 MG Oral; Duration: 5 Days Active Problems Problem Type SNOMED Code ICD Code Onset Dates Problem Status W/U Status Risk Notes Problem Vitamin D deficiency (83184194) Vitamin D deficiency (E55.9) Active confirmed Problem Vitamin B>12< deficiency anaemia (90851142) Anemia due to vitamin B12 deficiency, unspecified B12 deficiency type (D51.9) Active confirmed Problem Elevated fasting lipid profile (840221048845) Elevated lipids (E78.5) Active confirmed Problem Tingling (28524000) Tingling (R20.2) Active confirmed Vital Signs Heart Rate 75 /min 08/09/2025 Oximetry 97 % 08/09/2025 Blood pressure diastolic 62 mm Hg 08/09/2025 Height 64 in 08/09/2025 Blood pressure systolic 112 mm Hg 08/09/2025 Weight 125.2 lbs 08/09/2025 BMI 21.49 kg/m2 08/09/2025 Encounters Encounter Location Date Provider Diagnosis [facility] [address], [place] 06/06/2025 CRYSTAL STEPHANIE Numbness R20.0 ; 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.50 ; Tingling R20.2 and Encounter for examination of blood pressure without abnormal findings Z01.30 [facility] [address], [place] 07/06/2025 CRYSTAL STEPHANIE BMI 21.0-21.9, adult Z68.21 ; Tingling R20.2 ; Dietary counseling Z71.3 ; Numbness R20.0 ; Lumbar back pain M54.50 and Encounter for examination of blood pressure without abnormal findings Z01.[address] [facility] [address] [place], [place] 08/09/2025 CRYSTAL STEPHANIE BMI 21.0-21.9, adult Z68.21 ; Dietary counseling Z71.3 ; Tingling R20.2 ; Numbness R20.0 ; Lumbar back pain M54.50 and Encounter for examination of blood pressure without abnormal findings Z01.[address] [address] 05/09/2025 CRYSTAL STEPHAINE [facility] [address] [place] [address] [place] [address] 07/06/2025 CRYSTAL STEPHANIE [facility] [address] [place] [address] 07/11/2025 CRYSTAL STEPHANIE Elevated platelet co unt R79.89 and Elevated lipids E78.5 [facility] [address] [place] [address] 07/27/2025 CRYSTAL STEPHANIE [facility] [address] [place] [address] 07/13/2025 CRYSTAL STEPHANIE Assessments Encounter Date Diagnosis (ICD Code) Assessment Notes Treatment Notes Treatment Clinical Notes Section Notes 06/06/2025 Numbness (ICD-10 - R20.0) Dorina is a pleasant 59 year old famale with no significant past medical history is here for a new pt visit. #Lower back pain: A referal for the patients continuous lower back pain has been made (levi WILLIAMSON). Continue following with [facility] spine and sports for now. #Weight: Patient will be following back in our office in June for a weight managment consultation to discuss weight maintence... Advised patient that she is not a candidate for GLP-1 injections. #Tetanus vaccine: Patient would like to get tetanus vaccination at [facility] in december of 2025. #Left pinky numbness: Consider EMG... States that this is residual from her spinal fusion... States she has trialed and failed multiple different nerve medications. All questions have been answered to patient's satisfaction. Patient verbalized understanding of diagnosis and treatments explained. Advised to call sooner prior to next visit it any questions/concerns arise. Case discussed with Suman CORDOVA who reviewed the assessment and plan. Chart, medications, labs, vital signs reviewed. Dictation was accomplished with the use of [employer] voice recognition software, which is prone to medical misidentifications and grammatical errors. This are unintentional and the practitioner does try to identify and correct these, but some could still be present. Please do not hesitate to contact practitioner for clarification. 06/06/2025 Lumbar back pain (ICD-10 - M54.50) Dorina is a pleasant 59 year old famale with no significant past medical history is here for a new pt visit. #Lower back pain: A referal for the patients continuous lower back pain has been made (attn CLAY). Continue following with [facility] spine and sports for now. #Weight: Patient will be following back in our office in June for a weight managment consultation to discuss weight maintence... Advised patient that she is not a candidate for GLP-1 injections. #Tetanus vaccine: Patient would like to get tetanus vaccination at [facility] in december of 2025. #Left pinky numbness: Consider EMG... States that this is residual from her spinal fusion... States she has trialed and failed multiple different nerve medications. All questions have been answered to patient's satisfaction. Patient verbalized understanding of diagnosis and treatments explained. Advised to call sooner prior to next visit it any questions/concerns arise. Case discussed with Suman CORDOVA who reviewed the assessment and plan. Chart, medications, labs, vital signs reviewed. Dictation was accomplished with the use of [employer] voice recognition software, which is prone to medical misidentifications and grammatical errors. This are unintentional and the practitioner does try to identify and correct these, but some could still be present. Please do not hesitate to contact practitioner for clarification. 07/06/2025 BMI 21.0-21.9, adult (ICD-10 - Z68.21) Dorina is a 59-year-old female with a past medical history of C-spine pain, back pain, neuropathy who presents to the office today for a weight consult. 07/06/2025: BMI 21.3, weight 124.3 MICC injection given to patient in office today. Along with purchasing cortisol privacy manager for stress lowering. Patient advised that we may talk about Contrave at next appointment if she does not find any relief from the injection today. #C-spine pain: Of note patient did have a spinal fusion in 2021, at new patient visit we did fax referral over to [facility] [place] for further imaging and a second opinion. She is currently following with [facility] spine and sports, however feels as though she has been brushed off in regards to pain management and different options. Will be prescribing tizanidine 4 mg tablets to utilize as needed along with refaxing the referral. We spent a lot of time discussing the relationship between food, exercise, sleep, mental health and obesity. Patient was counseled on the importance EATING local, organic food when possible. Patient was educated on clean 15 and dirty dozen. I provided information about reading books called The Food Rules by Josemanuel Daley and Eat Fat Get Lean by Dr Dieter Trinidad. Self education is important in the journey for weight management. Patient was offered diagnostic testing. We want to measure visceral adiposity, advanced body composition, adverse lipids, fatty acid balance, risk for heart disease and atherosclerosis, markers of inflammation and genetic susceptibility. Patient was counseled on weight management and was advised to lose weight using A. Meal Replacement Products Patient was educated on the replacement products called optifast. This is a good way of taking fixed amount of calories. It has been shown in studies to be ineffective weight management tool. This however has to be coupled with lifestyle intervention as well as laboratory data and EKG monitoring. It is impossible to know how a person will tolerate complete meal replacement. The side effects of meal replacement and weight loss could include syncopal attacks, dizziness, gallstones, potential cholecystectomy, possible heart attack and even . The benefits of meal replacement would be potential weight loss but no guarantees can be made. Meal replacement products are not covered by insurance. Once the patient has bought these products we cannot return them B. Lifestyle management which includes several strategies as below 1. Eat a low carbohydrate good fat good protein diet. Eliminate refined carbohydrates from the diet. Continue blood sugar and sugared beverages. Eat local organic when possible. Cook your own meals. Read food labels. None about healthy snacks. Portion control and food with low glycemic index 2. Exercise regularly. Try to get at least 6000 steps a day. Use a predominant to track activity level. Consider using apps like Blendagram, myfitnesspal, lose it, stick as needed for self-monitoring and weight management. Consider group exercises. Consider hiring a personalized living assistant. Regular exercise is reid to sustainable health and prevents as a buffer against weight regain 3. Sleep is most important for healing. Tried to sleep at least 8 hours a night. A good quality sleep needs a sleep ritual with ideal room temperature of around 68. It might help to take a shower and have no electronics in the room and sleep in a very dark room without artificial light. Start her sleep routine and get up early in the morning and go to bed on time 4. Make a social connection. Surround yourself with positive people with positive energy. Connect with friends and family. 5. Get into the habit of meditating and mindfulness while doing everything. 6. Go outside and connect with nature. C. Prescription medications Patient was educated on the use of prescription medications for medical weight loss. This is a growing list and includes phentermine, Topamax,Qsymia, contrave, belviq and saxenda. All prescription medications could have side effects including but not limited to kidney stones seizure disorder cardiac arrhythmias heart attack pancreatitis etc. etc.. Patient was encouraged to read the prescription insert and have coaching with their pharmacist and make an informed decision about taking medication and know that these medications are being prescribed with good intentions and we do not know how a patient would react to her medication. Sudden medications are FDA approved for weight loss and there is also off label use depending on patient's inability to afford medications in an attempt to lose weight D. Behavioral counseling was done to establish a relationship between food and an mood. Patient was provided information about local counseling including the office of Dr. Rai in [place] and Dr Arndt at [facility]. We would like to cover regular topics and build on low glycemic eating exercise mindful eating, using yoga and meditation along with deep breathing and connecting with friends and family. E. Patient's current medications were reviewed and opinion was given on medication that can cause weight gain and can be substituted F. Patient was assessed for risk with obesity including and not limiting to atherosclerosis heart disease stroke kidney disease, restrictive lung disease, irritable bowel syndrome and overall mortality. Risk of developing prediabetes diabetes and metabolic syndrome was discussed G. Therapeutic plan: We have decided to make therapeutic plan which would include choosing wisely on calories restricting portion getting active, tracking weight, getting good quality sleep and working on time management H. Patient will follow up in 4 weeks for weight management Total time spent today was 60 minutes of which greater than 50% was spent on coordinating and counseling All questions have been answered to patient's satisfaction. Patient verbalized understanding of diagnosis and treatments explained. Advised to call sooner prior to next visit it any questions/concerns arise. Case discussed with Suman CORDOVA who reviewed the assessment and plan. Chart, medications, labs, vital signs reviewed. Dictation was accomplished with the use of [employer] voice recognition software, which is prone to medical misidentifications and grammatical errors. This are unintentional and the practitioner does try to identify and correct these, but some could still be present. Please do not hesitate to contact practitioner for clarification. 07/06/2025 Tingling (ICD-10 - R20.2) Dorina is a 59-year-old female with a past medical history of C-spine pain, back pain, neuropathy who presents to the office today for a weight consult. 07/06/2025: BMI 21.3, weight 124.3 MICC injection given to patient in office today. Along with purchasing cortisol privacy manager for stress lowering. Patient advised that we may talk about Contrave at next appointment if she does not find any relief from the injection today. #C-spine pain: Of note patient did have a spinal fusion in 2021, at new patient visit we did fax referral over to [facility] [place] for further imaging and a second opinion. She is currently following with [facility] spine and sports, however feels as though she has been brushed off in regards to pain management and different options. Will be prescribing tizanidine 4 mg tablets to utilize as needed along with refaxing the referral. We spent a lot of time discussing the relationship between food, exercise, sleep, mental health and obesity. Patient was counseled on the importance EATING local, organic food when possible. Patient was educated on clean 15 and dirty dozen. I provided information about reading books called The Food Rules by Josemanuel Daley and Eat Fat Get Lean by Dr Dieter Trinidad. Self education is important in the journey for weight management. Patient was offered diagnostic testing. We want to measure visceral adiposity, advanced body composition, adverse lipids, fatty acid balance, risk for heart disease and atherosclerosis, markers of inflammation and genetic susceptibility. Patient was counseled on weight management and was advised to lose weight using A. Meal Replacement Products Patient was educated on the replacement products called optifast. This is a good way of taking fixed amount of calories. It has been shown in studies to be ineffective weight management tool. This however has to be coupled with lifestyle intervention as well as laboratory data and EKG monitoring. It is impossible to know how a person will tolerate complete meal replacement. The side effects of meal replacement and weight loss could include syncopal attacks, dizziness, gallstones, potential cholecystectomy, possible heart attack and even . The benefits of meal replacement would be potential weight loss but no guarantees can be made. Meal replacement products are not covered by insurance. Once the patient has bought these products we cannot return them B. Lifestyle management which includes several strategies as below 1. Eat a low carbohydrate good fat good protein diet. Eliminate refined carbohydrates from the diet. Continue blood sugar and sugared beverages. Eat local organic when possible. Cook your own meals. Read food labels. None about healthy snacks. Portion control and food with low glycemic index 2. Exercise regularly. Try to get at least 6000 steps a day. Use a predominant to track activity level. Consider using apps like Blendagram, Dashbellpal, lose it, stick as needed for self-monitoring and weight management. Consider group exercises. Consider hiring a personalized living assistant. Regular exercise is reid to sustainable health and prevents as a buffer against weight regain 3. Sleep is most important for healing. Tried to sleep at least 8 hours a night. A good quality sleep needs a sleep ritual with ideal room temperature of around 68. It might help to take a shower and have no electronics in the room and sleep in a very dark room without artificial light. Start her sleep routine and get up early in the morning and go to bed on time 4. Make a social connection. Surround yourself with positive people with positive energy. Connect with friends and family. 5. Get into the habit of meditating and mindfulness while doing everything. 6. Go outside and connect with nature. C. Prescription medications Patient was educated on the use of prescription medications for medical weight loss. This is a growing list and includes phentermine, Topamax,Qsymia, contrave, belviq and saxenda. All prescription medications could have side effects including but not limited to kidney stones seizure disorder cardiac arrhythmias heart attack pancreatitis etc. etc.. Patient was encouraged to read the prescription insert and have coaching with their pharmacist and make an informed decision about taking medication and know that these medications are being prescribed with good intentions and we do not know how a patient would react to her medication. Sudden medications are FDA approved for weight loss and there is also off label use depending on patient's inability to afford medications in an attempt to lose weight D. Behavioral counseling was done to establish a relationship between food and an mood. Patient was provided information about local counseling including the office of Dr. Rai in [place] and Dr Arndt at [facility]. We would like to cover regular topics and build on low glycemic eating exercise mindful eating, using yoga and meditation along with deep breathing and connecting with friends and family. E. Patient's current medications were reviewed and opinion was given on medication that can cause weight gain and can be substituted F. Patient was assessed for risk with obesity including and not limiting to atherosclerosis heart disease stroke kidney disease, restrictive lung disease, irritable bowel syndrome and overall mortality. Risk of developing prediabetes diabetes and metabolic syndrome was discussed G. Therapeutic plan: We have decided to make therapeutic plan which would include choosing wisely on calories restricting portion getting active, tracking weight, getting good quality sleep and working on time management H. Patient will follow up in 4 weeks for weight management Total time spent today was 60 minutes of which greater than 50% was spent on coordinating and counseling All questions have been answered to patient's satisfaction. Patient verbalized understanding of diagnosis and treatments explained. Advised to call sooner prior to next visit it any questions/concerns arise. Case discussed with Suman CORDOVA who reviewed the assessment and plan. Chart, medications, labs, vital signs reviewed. Dictation was accomplished with the use of [employer] voice recognition software, which is prone to medical misidentifications and grammatical errors. This are unintentional and the practitioner does try to identify and correct these, but some could still be present. Please do not hesitate to contact practitioner for clarification. 07/11/2025 Elevated platelet count (ICD-10 - R79.89) 08/09/2025 Dietary counseling (ICD-10 - Z71.3) Dorina is a 59-year-old female with a past medical history of C-spine pain, back pain, neuropathy who presents to the office today for a weight consult. 07/06/2025: BMI 21.3, weight 124.3 MICC injection given to patient in office today. Along with purchasing cortisol privacy manager for stress lowering. Patient advised that we may talk about Contrave at next appointment if she does not find any relief from the injection today. #C-spine pain: Of note patient did have a spinal fusion in 2021, at new patient visit we did fax referral over to [facility] [place] for further imaging and a second opinion. She is currently following with [facility] spine and sports, however feels [...] Dictation was accomplished with the use of [employer] voice recognition software, which is prone to medical misidentifications and grammatical errors. This are unintentional and the practitioner does try to identify and correct these, but some could still be present. Please do not hesitate to contact practitioner for clarification. 08/09/2025 BMI 21.0-21.9, adult (ICD-10 - Z68.21) Dorina is a 59-year-old female with a past medical history of C-spine pain, back pain, neuropathy who presents to the office today for a weight consult. 07/06/2025: BMI 21.3, weight 124.3 MICC injection given to patient in office today. Along with purchasing cortisol privacy manager for stress lowering. Patient advised that we may talk about Contrave at next appointment if she does not find any relief from the injection today. #C-spine pain: Of note patient did have a spinal fusion in 2021, at new patient visit we did fax referral over to [facility] [place] for further imaging and a second opinion. She is currently following with [facility] spine and sports, however feels [...] Dictation was accomplished with the use of [employer] voice recognition software, which is prone to [...] in office today. Along with purchasing cortisol privacy manager for stress lowering. Patient advised that we may talk about Contrave at next appointment if she does not find any relief from the injection today. #C-spine pain: Of note patient did have a spinal fusion in 2021, at new patient visit we did fax referral over to [facility] [place] for further imaging and a second opinion. She is currently following with [facility] spine and sports, however feels [...] Dictation was accomplished with the use of [employer] voice recognition software, which is prone to medical misidentifications and grammatical errors. This are unintentional and the practitioner does try to identify and correct these, but some could still be present. Please do not hesitate to contact practitioner for clarification. 07/06/2025 Dietary counseling (ICD-10 - Z71.3) Dorina is a 59-year-old female with a past medical history of C-spine pain, back pain, neuropathy who presents to the office today for a weight consult. 07/06/2025: BMI 21.3, weight 124.3 MICC injection given to patient in office today. Along with purchasing cortisol privacy manager for stress lowering. Patient advised that we may talk about Contrave at next appointment if she does not find any relief from the injection today. #C-spine pain: Of note patient did have a spinal fusion in 2021, at new patient visit we did fax referral over to [facility] [place] for further imaging and a second opinion. She is currently following with [facility] spine and sports, however feels as though she has been brushed off in regards to pain management and different options. Will be prescribing tizanidine 4 mg tablets to utilize as needed along with refaxing the referral. We spent a lot of time discussing the relationship between food, exercise, sleep, mental health and obesity. Patient was counseled on the importance EATING local, organic food when possible. Patient was educated on clean 15 and dirty dozen. I provided information about reading books called The Food Rules by Josemanuel Daley and Eat Fat Get Lean by Dr Dieter Trinidad. Self education is important in the journey for weight management. Patient was offered diagnostic testing. We want to measure visceral adiposity, advanced body composition, adverse lipids, fatty acid balance, risk for heart disease and atherosclerosis, markers of inflammation and genetic susceptibility. Patient was counseled on weight management and was advised to lose weight using A. Meal Replacement Products Patient was educated on the replacement products called optifast. This is a good way of taking fixed amount of calories. It has been shown in studies to be ineffective weight management tool. This however has to be coupled with lifestyle intervention as well as laboratory data and EKG monitoring. It is impossible to know how a person will tolerate complete meal replacement. The side effects of meal replacement and weight loss could include syncopal attacks, dizziness, gallstones, potential cholecystectomy, possible heart attack and even . The benefits of meal replacement would be potential weight loss but no guarantees can be made. Meal replacement products are not covered by insurance. Once the patient has bought these products we cannot return them B. Lifestyle management which includes several strategies as below 1. Eat a low carbohydrate good fat good protein diet. Eliminate refined carbohydrates from the diet. Continue blood sugar and sugared beverages. Eat local organic when possible. Cook your own meals. Read food labels. None about healthy snacks. Portion control and food with low glycemic index 2. Exercise regularly. Try to get at least 6000 steps a day. Use a predominant to track activity level. Consider using apps like Blendagram, myfitnesspal, lose it, stick as needed for self-monitoring and weight management. Consider group exercises. Consider hiring a personalized living assistant. Regular exercise is reid to sustainable health and prevents as a buffer against weight regain 3. Sleep is most important for healing. Tried to sleep at least 8 hours a night. A good quality sleep needs a sleep ritual with ideal room temperature of around 68. It might help to take a shower and have no electronics in the room and sleep in a very dark room without artificial light. Start her sleep routine and get up early in the morning and go to bed on time 4. Make a social connection. Surround yourself with positive people with positive energy. Connect with friends and family. 5. Get into the habit of meditating and mindfulness while doing everything. 6. Go outside and connect with nature. C. Prescription medications Patient was educated on the use of prescription medications for medical weight loss. This is a growing list and includes phentermine, Topamax,Qsymia, contrave, belviq and saxenda. All prescription medications could have side effects including but not limited to kidney stones seizure disorder cardiac arrhythmias heart attack pancreatitis etc. etc.. Patient was encouraged to read the prescription insert and have coaching with their pharmacist and make an informed decision about taking medication and know that these medications are being prescribed with good intentions and we do not know how a patient would react to her medication. Sudden medications are FDA approved for weight loss and there is also off label use depending on patient's inability to afford medications in an attempt to lose weight D. Behavioral counseling was done to establish a relationship between food and an mood. Patient was provided information about local counseling including the office of Dr. Rai in [place] and Dr Arndt at [facility]. We would like to cover regular topics and build on low glycemic eating exercise mindful eating, using yoga and meditation along with deep breathing and connecting with friends and family. E. Patient's current medications were reviewed and opinion was given on medication that can cause weight gain and can be substituted F. Patient was assessed for risk with obesity including and not limiting to atherosclerosis heart disease stroke kidney disease, restrictive lung disease, irritable bowel syndrome and overall mortality. Risk of developing prediabetes diabetes and metabolic syndrome was discussed G. Therapeutic plan: We have decided to make therapeutic plan which would include choosing wisely on calories restricting portion getting active, tracking weight, getting good quality sleep and working on time management H. Patient will follow up in 4 weeks for weight management Total time spent today was 60 minutes of which greater than 50% was spent on coordinating and counseling All questions have been answered to patient's satisfaction. Patient verbalized understanding of diagnosis and treatments explained. Advised to call sooner prior to next visit it any questions/concerns arise. Case discussed with Suman CORDOVA who reviewed the assessment and plan. Chart, medications, labs, vital signs reviewed. Dictation was accomplished with the use of [employer] voice recognition software, which is prone to medical misidentifications and grammatical errors. This are unintentional and the practitioner does try to identify and correct these, but some could still be present. Please do not hesitate to contact practitioner for clarification. 07/11/2025 Elevated lipids (ICD-10 - E78.5) 06/06/2025 Tingling (ICD-10 - R20.2) Dorina is a pleasant 59 year old famale with no significant past medical history is here for a new pt visit. #Lower back pain: A referal for the patients continuous lower back pain has been made (levi WILLIAMSON). Continue following with [facility] spine and sports for now. #Weight: Patient will be following back in our office in June for a weight managment consultation to discuss weight maintence... Advised patient that she is not a candidate for GLP-1 injections. #Tetanus vaccine: Patient would like to get tetanus vaccination at [facility] in december of 2025. #Left pinky numbness: Consider EMG... States that this is residual from her spinal fusion... States she has trialed and failed multiple different nerve medications. All questions have been answered to patient's satisfaction. Patient verbalized understanding of diagnosis and treatments explained. Advised to call sooner prior to next visit it any questions/concerns arise. Case discussed with Suman CORDOVA who reviewed the assessment and plan. Chart, medications, labs, vital signs reviewed. Dictation was accomplished with the use of [employer] voice recognition software, which is prone to medical misidentifications and grammatical errors. This are unintentional and the practitioner does try to identify and correct these, but some could still be present. Please do not hesitate to contact practitioner for clarification. 06/06/2025 Encounter for examination of blood pressure without abnormal findings (ICD-10 - Z01.30) Dorina is a pleasant 59 year old famale with no significant past medical history is here for a new pt visit. #Lower back pain: A referal for the patients continuous lower back pain has been made (levi WILLIAMSON). Continue following with [facility] for now. #Weight: Patient will be following back in our office in June for a weight managment consultation to discuss weight maintence... Advised patient that she is not a candidate for GLP-1 injections. #Tetanus vaccine: Patient would like to get tetanus vaccination at [facility] in december of 2025. #Left pinky numbness: Consider EMG... States that this is residual from her spinal fusion... States she has trialed and failed multiple different nerve medications. All questions have been answered to patient's satisfaction. Patient verbalized understanding of diagnosis and treatments explained. Advised to call sooner prior to next visit it any questions/concerns arise. Case discussed with Suman CORDOVA who reviewed the assessment and plan. Chart, medications, labs, vital signs reviewed. Dictation was accomplished with the use of [employer] voice recognition software, which is prone to medical misidentifications and grammatical errors. This are unintentional and the practitioner does try to identify and correct these, but some could still be present. Please do not hesitate to contact practitioner for clarification. 07/06/2025 Numbness (ICD-10 - R20.0) Dorina is a 59-year-old female with a past medical history of C-spine pain, back pain, neuropathy who presents to the office today for a weight consult. 07/06/2025: BMI 21.3, weight 124.3 MICC injection given to patient in office today. Along with purchasing cortisol privacy manager for stress lowering. Patient advised that we may talk about Contrave at next appointment if she does not find any relief from the injection today. #C-spine pain: Of note patient did have a spinal fusion in 2021, at new patient visit we did fax referral over to [facility] [place] for further imaging and a second opinion. She is currently following with [facility], however feels as though she has been brushed off in regards to pain management and different options. Will be prescribing tizanidine 4 mg tablets to utilize as needed along with refaxing the referral. We spent a lot of time discussing the relationship between food, exercise, sleep, mental health and obesity. Patient was counseled on the importance EATING local, organic food when possible. Patient was educated on clean 15 and dirty dozen. I provided information about reading books called The Food Rules by Josemanuel Daley and Eat Fat Get Lean by Dr Dieter Trinidad. Self education is important in the journey for weight management. Patient was offered diagnostic testing. We want to measure visceral adiposity, advanced body composition, adverse lipids, fatty acid balance, risk for heart disease and atherosclerosis, markers of inflammation and genetic susceptibility. Patient was counseled on weight management and was advised to lose weight using A. Meal Replacement Products Patient was educated on the replacement products called optifast. This is a good way of taking fixed amount of calories. It has been shown in studies to be ineffective weight management tool. This however has to be coupled with lifestyle intervention as well as laboratory data and EKG monitoring. It is impossible to know how a person will tolerate complete meal replacement. The side effects of meal replacement and weight loss could include syncopal attacks, dizziness, gallstones, potential cholecystectomy, possible heart attack and even . The benefits of meal replacement would be potential weight loss but no guarantees can be made. Meal replacement products are not covered by insurance. Once the patient has bought these products we cannot return them B. Lifestyle management which includes several strategies as below 1. Eat a low carbohydrate good fat good protein diet. Eliminate refined carbohydrates from the diet. Continue blood sugar and sugared beverages. Eat local organic when possible. Cook your own meals. Read food labels. None about healthy snacks. Portion control and food with low glycemic index 2. Exercise regularly. Try to get at least 6000 steps a day. Use a predominant to track activity level. Consider using apps like [employer], myfitnesspal, lose it, stick as needed for self-monitoring and weight management. Consider group exercises. Consider hiring a personalized living assistant. Regular exercise is reid to sustainable health and prevents as a buffer against weight regain 3. Sleep is most important for healing. Tried to sleep at least 8 hours a night. A good quality sleep needs a sleep ritual with ideal room temperature of around 68. It might help to take a shower and have no electronics in the room and sleep in a very dark room without artificial light. Start her sleep routine and get up early in the morning and go to bed on time 4. Make a social connection. Surround yourself with positive people with positive energy. Connect with friends and family. 5. Get into the habit of meditating and mindfulness while doing everything. 6. Go outside and connect with nature. C. Prescription medications Patient was educated on the use of prescription medications for medical weight loss. This is a growing list and includes phentermine, Topamax,Qsymia, contrave, belviq and saxenda. All prescription medications could have side effects including but not limited to kidney stones seizure disorder cardiac arrhythmias heart attack pancreatitis etc. etc.. Patient was encouraged to read the prescription insert and have coaching with their pharmacist and make an informed decision about taking medication and know that these medications are being prescribed with good intentions and we do not know how a patient would react to her medication. Sudden medications are FDA approved for weight loss and there is also off label use depending on patient's inability to afford medications in an attempt to lose weight D. Behavioral counseling was done to establish a relationship between food and an mood. Patient was provided information about local counseling including the office of Dr. Rai in [place] and Dr Arndt at [facility]. We would like to cover regular topics and build on low glycemic eating exercise mindful eating, using yoga and meditation along with deep breathing and connecting with friends and family. E. Patient's current medications were reviewed and opinion was given on medication that can cause weight gain and can be substituted F. Patient was assessed for risk with obesity including and not limiting to atherosclerosis heart disease stroke kidney disease, restrictive lung disease, irritable bowel syndrome and overall mortality. Risk of developing prediabetes diabetes and metabolic syndrome was discussed G. Therapeutic plan: We have decided to make therapeutic plan which would include choosing wisely on calories restricting portion getting active, tracking weight, getting good quality sleep and working on time management H. Patient will follow up in 4 weeks for weight management Total time spent today was 60 minutes of which greater than 50% was spent on coordinating and counseling All questions have been answered to patient's satisfaction. Patient verbalized understanding of diagnosis and treatments explained. Advised to call sooner prior to next visit it any questions/concerns arise. Case discussed with Suman CORDOVA who reviewed the assessment and plan. Chart, medications, labs, vital signs reviewed. Dictation was accomplished with the use of [employer] voice recognition software, which is prone to [...] in office today. Along with purchasing cortisol privacy manager for stress lowering. Patient advised that we may talk about Contrave at next appointment if she does not find any relief from the injection today. #C-spine pain: Of note patient did have a spinal fusion in 2021, at new patient visit we did fax referral over to [facility] [place] for further imaging and a second opinion. She is currently following with [facility] spine and sports, however feels [...] Dictation was accomplished with the use of [employer] voice recognition software, which is prone to medical misidentifications and grammatical errors. This are unintentional and the practitioner does try to identify and correct these, but some could still be present. Please do not hesitate to contact practitioner for clarification. 07/06/2025 Lumbar back pain (ICD-10 - M54.50) Dorina is a 59-year-old female with a past medical history of C-spine pain, back pain, neuropathy who presents to the office today for a weight consult. 07/06/2025: BMI 21.3, weight 124.3 MICC injection given to patient in office today. Along with purchasing cortisol privacy manager for stress lowering. Patient advised that we may talk about Contrave at next appointment if she does not find any relief from the injection today. #C-spine pain: Of note patient did have a spinal fusion in 2021, at new patient visit we did fax referral over to [facility] [place] for further imaging and a second opinion. She is currently following with [facility] spine and sports, however feels as though she has been brushed off in regards to pain management and different options. Will be prescribing tizanidine 4 mg tablets to utilize as needed along with refaxing the referral. We spent a lot of time discussing the relationship between food, exercise, sleep, mental health and obesity. Patient was counseled on the importance EATING local, organic food when possible. Patient was educated on clean 15 and dirty dozen. I provided information about reading books called The Food Rules by Josemanuel Daley and Eat Fat Get Lean by Dr Dieter Trinidad. Self education is important in the journey for weight management. Patient was offered diagnostic testing. We want to measure visceral adiposity, advanced body composition, adverse lipids, fatty acid balance, risk for heart disease and atherosclerosis, markers of inflammation and genetic susceptibility. Patient was counseled on weight management and was advised to lose weight using A. Meal Replacement Products Patient was educated on the replacement products called optifast. This is a good way of taking fixed amount of calories. It has been shown in studies to be ineffective weight management tool. This however has to be coupled with lifestyle intervention as well as laboratory data and EKG monitoring. It is impossible to know how a person will tolerate complete meal replacement. The side effects of meal replacement and weight loss could include syncopal attacks, dizziness, gallstones, potential cholecystectomy, possible heart attack and even . The benefits of meal replacement would be potential weight loss but no guarantees can be made. Meal replacement products are not covered by insurance. Once the patient has bought these products we cannot return them B. Lifestyle management which includes several strategies as below 1. Eat a low carbohydrate good fat good protein diet. Eliminate refined carbohydrates from the diet. Continue blood sugar and sugared beverages. Eat local organic when possible. Cook your own meals. Read food labels. None about healthy snacks. Portion control and food with low glycemic index 2. Exercise regularly. Try to get at least 6000 steps a day. Use a predominant to track activity level. Consider using apps like Blendagram, Dashbellpal, lose it, stick as needed for self-monitoring and weight management. Consider group exercises. Consider hiring a personalized living assistant. Regular exercise is reid to sustainable health and prevents as a buffer against weight regain 3. Sleep is most important for healing. Tried to sleep at least 8 hours a night. A good quality sleep needs a sleep ritual with ideal room temperature of around 68. It might help to take a shower and have no electronics in the room and sleep in a very dark room without artificial light. Start her sleep routine and get up early in the morning and go to bed on time 4. Make a social connection. Surround yourself with positive people with positive energy. Connect with friends and family. 5. Get into the habit of meditating and mindfulness while doing everything. 6. Go outside and connect with nature. C. Prescription medications Patient was educated on the use of prescription medications for medical weight loss. This is a growing list and includes phentermine, Topamax,Qsymia, contrave, belviq and saxenda. All prescription medications could have side effects including but not limited to kidney stones seizure disorder cardiac arrhythmias heart attack pancreatitis etc. etc.. Patient was encouraged to read the prescription insert and have coaching with their pharmacist and make an informed decision about taking medication and know that these medications are being prescribed with good intentions and we do not know how a patient would react to her medication. Sudden medications are FDA approved for weight loss and there is also off label use depending on patient's inability to afford medications in an attempt to lose weight D. Behavioral counseling was done to establish a relationship between food and an mood. Patient was provided information about local counseling including the office of Dr. Rai in [place] and Dr Arndt at [facility]. We would like to cover regular topics and build on low glycemic eating exercise mindful eating, using yoga and meditation along with deep breathing and connecting with friends and family. E. Patient's current medications were reviewed and opinion was given on medication that can cause weight gain and can be substituted F. Patient was assessed for risk with obesity including and not limiting to atherosclerosis heart disease stroke kidney disease, restrictive lung disease, irritable bowel syndrome and overall mortality. Risk of developing prediabetes diabetes and metabolic syndrome was discussed G. Therapeutic plan: We have decided to make therapeutic plan which would include choosing wisely on calories restricting portion getting active, tracking weight, getting good quality sleep and working on time management H. Patient will follow up in 4 weeks for weight management Total time spent today was 60 minutes of which greater than 50% was spent on coordinating and counseling All questions have been answered to patient's satisfaction. Patient verbalized understanding of diagnosis and treatments explained. Advised to call sooner prior to next visit it any questions/concerns arise. Case discussed with Suman CORDOVA who reviewed the assessment and plan. Chart, medications, labs, vital signs reviewed. Dictation was accomplished with the use of [employer] voice recognition software, which is prone to [...] in office today. Along with purchasing cortisol privacy manager for stress lowering. Patient advised that we may talk about Contrave at next appointment if she does not find any relief from the injection today. #C-spine pain: Of note patient did have a spinal fusion in 2021, at new patient visit we did fax referral over to [facility] [place] for further imaging and a second opinion. She is currently following with [facility] spine and sports, however feels [...] Dictation was accomplished with the use of [employer] voice recognition software, which is prone to [...] in office today. Along with purchasing cortisol privacy manager for stress lowering. Patient advised that we may talk about Contrave at next appointment if she does not find any relief from the injection today. #C-spine pain: Of note patient did have a spinal fusion in 2021, at new patient visit we did fax referral over to [facility] [place] for further imaging and a second opinion. She is currently following with [facility] spine and sports, however feels [...] Dictation was accomplished with the use of [employer] voice recognition software, which is prone to medical misidentifications and grammatical errors. This are unintentional and the practitioner does try to identify and correct these, but some could still be present. Please do not hesitate to contact practitioner for clarification. 07/06/2025 Encounter for examination of blood pressure without abnormal findings (ICD-10 - Z01.30) Dornia is a 59-year-old female with a past medical history of C-spine pain, back pain, neuropathy who presents to the office today for a weight consult. 07/06/2025: BMI 21.3, weight 124.3 MICC injection given to patient in office today. Along with purchasing cortisol privacy manager for stress lowering. Patient advised that we may talk about Contrave at next appointment if she does not find any relief from the injection today. #C-spine pain: Of note patient did have a spinal fusion in 2021, at new patient visit we did fax referral over to [facility], [place] for further imaging and a second opinion. She is currently following with [facility], however feels as though she has been brushed off in regards to pain management and different options. Will be prescribing tizanidine 4 mg tablets to utilize as needed along with refaxing the referral. We spent a lot of time discussing the relationship between food, exercise, sleep, mental health and obesity. Patient was counseled on the importance EATING local, organic food when possible. Patient was educated on clean 15 and dirty dozen. I provided information about reading books called The Food Rules by Josemanuel Daley and Eat Fat Get Lean by Dr Dieter Trinidad. Self education is important in the journey for weight management. Patient was offered diagnostic testing. We want to measure visceral adiposity, advanced body composition, adverse lipids, fatty acid balance, risk for heart disease and atherosclerosis, markers of inflammation and genetic susceptibility. Patient was counseled on weight management and was advised to lose weight using A. Meal Replacement Products Patient was educated on the replacement products called optifast. This is a good way of taking fixed amount of calories. It has been shown in studies to be ineffective weight management tool. This however has to be coupled with lifestyle intervention as well as laboratory data and EKG monitoring. It is impossible to know how a person will tolerate complete meal replacement. The side effects of meal replacement and weight loss could include syncopal attacks, dizziness, gallstones, potential cholecystectomy, possible heart attack and even . The benefits of meal replacement would be potential weight loss but no guarantees can be made. Meal replacement products are not covered by insurance. Once the patient has bought these products we cannot return them B. Lifestyle management which includes several strategies as below 1. Eat a low carbohydrate good fat good protein diet. Eliminate refined carbohydrates from the diet. Continue blood sugar and sugared beverages. Eat local organic when possible. Cook your own meals. Read food labels. None about healthy snacks. Portion control and food with low glycemic index 2. Exercise regularly. Try to get at least 6000 steps a day. Use a predominant to track activity level. Consider using apps like Blendagram, myfitnesspal, lose it, stick as needed for self-monitoring and weight management. Consider group exercises. Consider hiring a personalized living assistant. Regular exercise is reid to sustainable health and prevents as a buffer against weight regain 3. Sleep is most important for healing. Tried to sleep at least 8 hours a night. A good quality sleep needs a sleep ritual with ideal room temperature of around 68. It might help to take a shower and have no electronics in the room and sleep in a very dark room without artificial light. Start her sleep routine and get up early in the morning and go to bed on time 4. Make a social connection. Surround yourself with positive people with positive energy. Connect with friends and family. 5. Get into the habit of meditating and mindfulness while doing everything. 6. Go outside and connect with nature. C. Prescription medications Patient was educated on the use of prescription medications for medical weight loss. This is a growing list and includes phentermine, Topamax,Qsymia, contrave, belviq and saxenda. All prescription medications could have side effects including but not limited to kidney stones seizure disorder cardiac arrhythmias heart attack pancreatitis etc. etc.. Patient was encouraged to read the prescription insert and have coaching with their pharmacist and make an informed decision about taking medication and know that these medications are being prescribed with good intentions and we do not know how a patient would react to her medication. Sudden medications are FDA approved for weight loss and there is also off label use depending on patient's inability to afford medications in an attempt to lose weight D. Behavioral counseling was done to establish a relationship between food and an mood. Patient was provided information about local counseling including the office of Dr. Rai in [place] and Dr Arndt at [facility]. We would like to cover regular topics and build on low glycemic eating exercise mindful eating, using yoga and meditation along with deep breathing and connecting with friends and family. E. Patient's current medications were reviewed and opinion was given on medication that can cause weight gain and can be substituted F. Patient was assessed for risk with obesity including and not limiting to atherosclerosis heart disease stroke kidney disease, restrictive lung disease, irritable bowel syndrome and overall mortality. Risk of developing prediabetes diabetes and metabolic syndrome was discussed G. Therapeutic plan: We have decided to make therapeutic plan which would include choosing wisely on calories restricting portion getting active, tracking weight, getting good quality sleep and working on time management H. Patient will follow up in 4 weeks for weight management Total time spent today was 60 minutes of which greater than 50% was spent on coordinating and counseling All questions have been answered to patient's satisfaction. Patient verbalized understanding of diagnosis and treatments explained. Advised to call sooner prior to next visit it any questions/concerns arise. Case discussed with Suman CORDOVA who reviewed the assessment and plan. Chart, medications, labs, vital signs reviewed. Dictation was accomplished with the use of [employer] voice recognition software, which is prone to medical misidentifications and grammatical errors. This are unintentional and the practitioner does try to identify and correct these, but some could still be present. Please do not hesitate to contact practitioner for clarification. Plan Of Treatment Pending Test Test Name Order Date LIPID PANEL, STANDARD 06/06/2025 LIPID PANEL, STANDARD 07/11/2025 COMPREHENSIVE METABOLIC PANEL 06/06/2025 CBC (INCLUDES DIFF/PLT) 06/06/2025 CBC (INCLUDES DIFF/PLT) 07/11/2025 URINALYSIS, COMPLETE 06/06/2025 VITAMIN B12 06/06/2025 VITAMIN D,25-OH,TOTAL,IA 06/06/2025 TSH+T4F+T3Free 06/06/2025 PPC Hemoglobin A1C 08/09/2025 Next Appt Details Provider Name:CRYSTAL BAER, 10:00:00 AM, [address], [place], [address], Provider Name:CRYSTAL BAER, 03:00:00 PM, [address], [place], [address], Insurance Providers Payer Name Payer Address Payer Phone Subscriber Number Group Number Insured Name Patient Relationship to Insured Coverage Start Date Coverage End Date [facility] [address] [place] [address] [id number] Dorina Pascual Self - patient is the insured Medications Administered Medication Instructions Date of Administration Dosage Notes MICC B12 INJECTION 07/06/2025 1 mL MICC B12 INJECTION 08/09/2025 1 mL Medical (General) History Surgical History Surgery Date(Month/Year) breast reduction section Ulnar shortening Spinal Fusion 2021
== END 2025-08-12 10:22 | disposition home or self-care (01) ==
LOC: HO.MAMMO 10:21
PROVIDERS: Referring Provider Nurse Practitioner Women's Health; Visit Provider Family Medicine
DX: Z12.31 Encounter for screening mammogram for malignant neoplasm of breast (principal)
CPT/HCPCS: 77063; 77067

== ENCOUNTER → 2025-08-12 10:30 | Outpatient (BNV) | payer BC, SELFPAY | PROVIDERS: Referring Provider Nurse Practitioner Women's Health; Visit Provider Internal Medicine | DX: Z12.31 Encounter for screening mammogram for malignant neoplasm of breast (principal) | CPT/HCPCS: 77063; 77067 ==